=== PATIENT | female | born 1955 | race Hispanic/Latino ===

== ENCOUNTER 2020-06-28 11:31 | Emergency (ER) | payer OTHER ==
[2020-06-28] MEDS ORDERED: TETANUS,DIPH,PERTUSS(ACELL) VACCINE 0.5 ML SYRINGE IM ONE (11:40)
--- NOTE | 2020-06-28 11:41 | Event Note ---
ED Screening Note ED Screening Note: Patient presents for a fall that occurred just prior to arrival She states that she was crossing the street and accidentally tripped and fell and landed on her right side She states that she landed directly onto her elbow She states that she only has pain to her right elbow She has some abrasions to her right lower leg but denies any right leg pain She denies hitting her head or loss of consciousness She denies any neck pain or back pain There is an obvious deformity to the right elbow This initial assessment/diagnostic orders/clinical plan/treatment(s) is/are subject to change based on patients health status, clinical progression and re- assessment by fellow clinical providers in the ED. Further treatment and workup at subsequent clinical providers discretion. Patient/guardian urged not to elope from the ED as their condition may be serious if not clinically assessed and managed. Initial orders include: X-rays, Tdap
[2020-06-28] MEDS ORDERED: HYDROmorphone 1 MG/1 ML INJ IV ONE ×2 (12:14→13:05)
--- NOTE | 2020-06-28 14:36 | XRay Report ---
Right forearm 3 views INDICATION: Right forearm pain IMPRESSION: There is complete dislocation of the right elbow. No displaced fracture involving the mid or distal forearm identified. The proximal ulna is difficult to visualize secondary to the overlying dislocated humerus but no definite displaced fracture is identified. Signer Name: Chung Farias MD Signed: 06/28/2020 2:32 PM Workstation Name: [id number]
--- NOTE | 2020-06-28 14:43 | XRay Report ---
RIGHT ELBOW 3 VIEW(S) INDICATION / CLINICAL INFORMATION: fall, deformity right elbow COMPARISON: Forearm radiographs dated 06/28/2020. FINDINGS: BONES / JOINT(S): Dislocation of the elbow is noted. No definite fractures are noted No significant a rthritis. SOFT TISSUES: Significant soft tissue swelling and edema noted around the elbow. Moderate elbow joint effusion. ADDITIONAL FINDINGS: None. Signer Name: Benjamín Gutierrez MD Signed: 06/28/2020 2:39 PM Workstation Name: [id number]
[2020-06-28] MEDS ORDERED: MORPHINE 4 MG/1 ML INJ IV ONE (14:52)
[2020-06-28] MEDS ORDERED: ONDANSETRON 4 MG/2 ML INJ IV ONE (14:52)
--- NOTE | 2020-06-28 14:52 | Emergency Department Report ---
Upper Extremity - HPI Chief Complaint: Extremity Injury, Upper Stated Complaint: RT ELBOW FX Time Seen by Provider: 06/28/20 11:39 Upper Extremity: Right Elbow Occurred When: Today Mechanism: Fall Severity: severe Symptoms: Yes Pain with Movement, Yes Deformity, Yes Limited Range of Movement, No Numbness, No Weakness, No Swelling, No Bruising/Ecchymosis, No Laceration or Abrasion Other History: Chief complaint: I fell and hurt myself. HPI: This is a 65-year-old [id number] female with history of hypertension who injured her right upper extremity after a fall. It was a mechanical fall. Patient tripped and fell landing directly onto her right elbow. She denies head trauma or loss of consciousness. She arrived with her EMS with deformity at the right elbow. Pain was 10 out of 10 prior to receiving 100 mcg of fentanyl via EMS. Pain is 5-6 out of 10 unless she moves the extremity. She is right-handed. She had a recent colonoscopy. She does not have a history of adverse effects of general anesthesia. She has been her normal state of health. Patient last ate food last night. She has been drinking water throughout the day. Last p.o. intake of water 30 minutes prior to my evaluation. ED Review of Systems ROS: Stated complaint: RT ELBOW FX Other details as noted in HPI Comment: All other systems reviewed and negative Constitutional: denies: fever, malaise Cardiovascular: denies: chest pain, edema Gastrointestinal: denies: abdominal pain Musculoskeletal: arthralgia ED Past Medical Hx - Past Medical History Previous Medical History?: Yes Hx Hypertension: Yes - Surgical History Past Surgical History?: Yes Additional Surgical History: Hysterectomy, appendectomy, colonoscopy - Social History Smoking Status: Never Smoker Substance Use Type: Alcohol - Medications Home Medications: Home Medications Medication Instructions Recorded Confirmed Last Taken Type HYDROcodone/APAP 5-325 [[place] 1 each PO Q4HR PRN #10 tablet 06/28/20 Unknown Rx 5/325] Ibuprofen [Motrin 800 MG tab] 800 mg PO Q8HR PRN #20 tablet 06/28/20 Unknown Rx Upper Extremity Exam - Exam General: Vital signs noted. No distress. Alert and acting appropriately. Head and Torso: No HEENT Abnormality, No Neck Tenderness, No Chest/Lungs Abnormality, No Abdominal Tenderness, No Back Tenderness Shoulder Exam: Yes Normal Range of Motion in Shoulder, No Shoulder Tenderness, No Clavicle Tenderness, No Shoulder Deformity, No AC Joint Tenderness Arm Exam: No Arm/Humerus Tenderness, No Arm Deformity Elbow: Yes Elbow Tenderness, Yes Normal Range of Motion in Elbow, Yes Elbow Deformity (Right elbow is deformed in relation to humerus in neutral position forearm is pronated internally rotated with dimpling of the skin) Forearm: Yes Pain with Pronation, Yes Pain with Supination, No Forearm Tenderness, No Forearm Deformity Wrist: Yes Normal ROM in Wrist, No Wrist Tenderness, No Wrist Deformity, No Snuffbox Tenderness, No Pain with Axial Thumb Compression Hand: Yes Normal ROM in Digit(s), No Hand Tenderness, No Hand Deformity, No D igit Tenderness, No Digit(s) Deformity, No Tendon Dysfunction CMS Exam: Yes Normal Distal Pulses, Yes Normal Capillary Refill, Yes Normal Distal Sensation, No Broken Skin ED Course Vital Signs 06/28/20 06/28/20 11:53 14:40 Temperature 98.4 F Pulse Rate 83 Respiratory 18 17 Rate Blood Pressure 153/83 [Right] O2 Sat by Pulse 97 Oximetry - Reevaluation(s) Reevaluation #1: 06/28/20 17:09 Ms. Johnson tolerated water. She is alert and oriented x4. Reevaluation #2: 06/28/20 17:23 Patient is awake alert sedation completely resolved. - Moderate Sedation Indications: fracture/dislocation redu ASA Class: II Mallampati Airway Score: 2 Time of Last PO Intake: 00:00 Preparation: hall monitor applied, pulse oximeter, capnometry used, supplemental O2 applied, suction/airway equipment at bedside, IV secured Ketamine Dose: 100 Complications: none Patient Tolerated Procedure: well Additional Comments: Total time of sedation 37 minutes from 4:01PM to 4:38 PM - Orthopedic Joint Reduction Joint #1 Consent Obtained: written consent Time Out Performed: Yes Side: right Joint Reduction Location: elbow Analgesia: moderate sedation Technique Used: direct manipulation Post-Reduction Neuro Exam: intact Post-Reduction Vascular Exam: intact Post Reduction X-Ray Obtained: Yes Post Reduction X-Ray Results: reduced Splint Applied: Yes Patient Tolerated Procedure: well - Orthopedic Splinting/Casting Injury #1 Side: right Upper Extremity Injury Location: upper arm, elbow, forearm Upper Extremity Immobilizer: sling/shoulder immobilize, posterior splint Additional Comments: Splint was applied to the right upper extremity with the assistance of orthopedic surgeon Dr. Ortega under my supervision. Dr. Ortega position the extremity in optimal position. After application the extremity was neurovascularly intact with acceptable alignment. ED Medical Decision Making - Radiology Data Radiology results: report reviewed Patient Name: GRACE JOHNSON Gender: Female Date of : 1955 Home Phone: Referring Provider: CONSTANTINE BURGOS Organization: [facility] Accession Number: [id number] Requested Date: June 28, 2020 11:39 Report Status: Final Requested Procedure: 1 Procedure Description: XR forearm RT Modality: XR Findings Reporting MD: Chung Farias Dictation Time: June 28, 2020 13:32 Product Development Assistant: Not available Door Assembler Date: Right forearm 3 views INDICATION: Right forearm pain IMPRESSION: There is complete dislocation of the right elbow. No displaced fracture involving the mid or distal forearm identified. The proximal ulna is difficult to visualize secondary to the overlying dislocated humerus but no definite displaced fracture is identified. Signer Name: Chung Farias MD Signed: 06/28/2020 1:32 PM Workstation Name: [id number] Patient Name: GRACE JOHNSON Gender: Female Date of : 1955 Home Phone: Referring Provider: CONSTANTINE BURGOS Organization: [facility] Accession Number: [id number] Requested Date: June 28, 2020 11:39 Report Status: Final Requested Procedure: 1 Procedure Description: XR elbow 3+V RT Modality: XR Findings Reporting MD: Benjamín Gutierrez Dictation Time: June 28, 2020 13:39 Product Development Assistant: Not available Door Assembler Date: RIGHT ELBOW 3 VIEW(S) INDICATION / CLINICAL INFORMATION: fall, deformity right elbow COMPARISON: Forearm radiographs dated 06/28/2020. FINDINGS: BONES / JOINT(S): Dislocation of the elbow is noted. No definite fractures are noted No significant arthritis. SOFT TISSUES: Significant soft tissue swelling and edema noted around the elbow. Moderate elbow joint effusion. ADDITIONAL FINDINGS: None. Signer Name: Benjamín Gutierrez MD Signed: 06/28/2020 1:39 PM Workstation Name: [id number] Patient Name: GRACE JOHNSON Gender: Female Date of : 1955 Referring Provider: LINETTE BARGER Organization: [facility] Accession Number: [id number] Requested Date: June 28, 2020 16:24 Report Status: Final Requested Procedure: 1 Procedure Description: XR elbow 1V RT Modality: XR Findings Reporting MD: Benjamín Gutierrez Dictation Time: June 28, 2020 15:58 Product Development Assistant: Not available Door Assembler Date: RIGHT ELBOW 1 VIEW(S) INDICATION / CLINICAL INFORMATION: elbow reduction COMPARISON: Prior radiograph the right elbow 06/28/2020 FINDINGS: BONES / JOINT(S): Interval reduction of previously noted elbow dislocation. No definite displaced fracture. No significant arthritis. SOFT TISSUES: Persistent soft tissue swelling and edema around the elbow. ADDITIONAL FINDINGS: Interval splinting. Signer Name: Benjamín Gutierrez MD Signed: 06/28/2020 3:58 PM Workstation Name: [id number] - Medical Decision Making Complicated elbow dislocation neurovascularly intact, Dr. Ortega orthopedic surgeon reviewed the x-rays and evaluated patient. He diagnosed patient with anterior elbow dislocation which he explained is rare. With his assistance I performed moderate sedation. Dr. Ortega reduce the elbow successfully. Patient was placed in posterior splint and sling according to procedure note. Patient will follow up with orthopedic surgeon in her hometown [facility]. She is in town to visit her 91-year-old mother. Critical care attestation.: If time is entered above; I have spent that time in minutes in the direct care of this critically ill patient, excluding procedure time. ED Disposition Clinical Impression: Anterior dislocation of elbow, closed Disposition: DC-01 TO HOME OR SELFCARE Is pt being admited?: No Does the pt Need Aspirin: No Condition: Stable Instructions: Cast or Splint Care, Adult, [id number], Moderate Conscious Sedation, Adult, Moderate Conscious Sedation, Adult, Care After, Elbow Dislocation, [id number] Additional Instructions: Please have your primary physician refer to orthopedic surgeon within the next 2 to 3 weeks. Prescriptions: Ibuprofen [Motrin 800 MG tab] 800 mg PO Q8HR PRN #20 tablet PRN Reason: Pain , Severe (7-10) HYDROcodone/APAP 5-325 [[place] 5/325] 1 each PO Q4HR PRN #10 tablet PRN Reason: Pain
[2020-06-28] MEDS ORDERED: KETAMINE 500 MG/5 ML VIAL MDV IV ONE (15:28)
[2020-06-28] MEDS: KETAMINE 500 MG/5 ML VIAL MDV IV ONE ×2 (16:01→16:02)
--- NOTE | 2020-06-28 17:02 | XRay Report ---
RIGHT ELBOW 1 VIEW(S) INDICATION / CLINICAL INFORMATION: elbow reduction COMPARISON: Prior radiograph the right elbow 06/28/2020 FINDINGS: BONES / JOINT(S): Interval reduction of previously noted elbow dislocation. No definite displaced fra cture. No significant arthritis. SOFT TISSUES: Persistent soft tissue swelling and edema around the elbow. ADDITIONAL FINDINGS: Interval splinting. Signer Name: Benjamín Gutierrez MD Signed: 06/28/2020 4:58 PM Workstation Name: [id number]
[2020-06-28 17:42] VITALS: BP 144/69
== END 2020-06-28 18:01 | disposition home or self-care (01) ==
LOC: ED 11:31
DX: S53.114A Anterior dislocation of right ulnohumeral joint, initial encounter (principal); I10 Essential (primary) hypertension; Z98.890 Other specified postprocedural states; Z79.1 Long term (current) use of non-steroidal anti-inflammatories (NSAID); Z79.899 Other long term (current) drug therapy; W01.0XXA Fall on same level from slipping, tripping and stumbling without subsequent striking against object, initial encounter; Y93.89 Activity, other specified; Y92.89 Other specified places as the place of occurrence of the external cause; Y99.8 Other external cause status
CPT/HCPCS: 24600; 73070; 73080; 73090; 90471; 90715; 96374; 96375; 96376; 99285; J1170; J2270; J2405